=== PATIENT | male | born 1965 | race Caucasian/White ===

== ENCOUNTER 2025-02-11 15:42 | Emergency (ER) | payer OTHER, SELFPAY ==
[2025-02-11 15:45] VITALS: BP 149/88
[2025-02-11 19:02] VITALS: BMI 51.0
[2025-02-11] MEDS: NORCO 5/325 1 TABLET PO (20:21)
[2025-02-11] MEDS: DECADRON 10 MG PO (20:22)
--- NOTE | 2025-02-12 22:44 | ED.GENMED ---
History of Present Illness
General
Chief Complaint: Back Pain
Source: patient
Exam Limitations: none
Time Seen by Provider: 02/11/25 19:10
Nursing documentation reviewed up to this point in time: agreed with
History of Present Illness
History of Present Illness:
Patient to ED wtih complant of sciatic pain to LLE. He has chronic pain to low back and RLE. States this pain is new. Denies any history of new trauma. Denies any bowel or bladder symtpoms. No weakness in extremities, no saddle paresthesia.
Brought to ED by daughter for eval
Past History
Past History
ED Past Medical History: Other (chronic low back pain)
Review of Systems
Review of Systems
Allergies reviewed?: Yes
All Other Systems: ROS reviewed and negative except as documented in HPI and ROS
EENT: Reports no symptoms
Respiratory: Reports no symptoms
Cardiac: Reports no symptoms
ABD/GI: Reports no symptoms
: Reports no symptoms
Musculoskeletal: Reports back pain (bilateral lower back pain (chronic) radiating Irish (new))
Skin: Reports no symptoms
Neurological: Reports other (sciatic pain RLE)
Hematologic/Lymphatic: Reports no symptoms
Psychiatric: Reports no symptoms
Phy Exam
General Physical Exam
General Presentation: mild distress
General age: appears stated age
General Skin: warm and dry
General Habitus: obese
General Mental: alert
Musculoskeletal Exam
Musculoskeletal Exam: neuro vasc intact and other (Bilateral lower back pain (chronic) with radiation to LLE(new))
Skin Exam
Skin Exam: normal color, warm/dry and no rash
Psychiatric Exam
Psychiatric Exam: normal mood/affect
Course
Orders/Labs/Results
Orders:
Orders
02/11/25 19:25
Dexamethasone Pf [Decadron] 10 mg PO NOW STA
Hydrocodone 5/APAP 325 [Vanlue 5/325] 1 tablet PO NOW STA
Lumbar Spine Complete, 4 View [CR Lumbar Spine Comp Min 4 Vw*] Urgent
Comment:
Reason For Exam: pain
Vital Signs
Initial and Last Documented VS:
Initial Vital Signs
Temp Pulse Resp BP Pulse Ox
98 F 97 16 149/88 98
02/11/25 15:45 02/11/25 15:45 02/11/25 15:45 02/11/25 15:45 02/11/25 15:45
Last Documented Vital Signs
Temp Pulse Resp BP Pulse Ox
98 F 97 16 149/88 98
02/11/25 15:45 02/11/25 15:45 02/11/25 15:45 02/11/25 15:45 02/11/25 15:45
*Radiology
Radiology exam reviewed: radiology read reviewed
*Pulse Oximetry
Patient hypoxic: no
*Critical Care Note
Total Time (30-74mins, 75-104mins- exclusive of procedures): Not Applicable
Update Note
Update Note:
Patient to ED with complaint of sciatic pain to LLE. He has a chronic history of bilateral lower back pain and history of RLE sciatica. Now with LLE radiation. Neurovasc. intact. No weakness in extremities, no bowel or bladder symptoms, no saddle
paresthesia. No concern for cauda equina. Given dose of decadron in ED. WIll discharge with short course of pain medication and he will follow up [facility] this Pain management provider in the AM. He was given instructions on s/s to return to ED and
he is agreeable to plan.
ED Attending Note
-
Portions of this chart may have been created with voice recognition software.� Occasional wrong word or��sound alike� substitutions may have occurred due to the inherent limitations of voice recognition software.
Discharge Plan
Departure
Patient Disposition: Home (Routine Discharge)
Date of Disposition: 02/11/25
Time of Disposition: 20:28
Patient with high blood pressure during this ER visit?: No
Condition: Good
Covid-19: Not Applicable
Discharge Problem:
Low back pain, Sciatic pain
Instructions: Low Back Pain (DC), Sciatica (DC)
Prescriptions:
New
hydrocodone-acetaminophen 5-325 mg tablet
1 tab PO Q4H PRN (Reason: Pain) Qty: 10 0RF
Referrals:
Silviano Garcia DO [Non-Admitting Privileges] - Call in 1-3 days for appt
Davonte Singh MD [Family Provider] -
Interventions
Interventions:
*Risk Screen - Suicide Last Done: 02/11/25 15:45
*General Assessment Last Done: 02/11/25 19:03
*Neglect/Abuse Screening Last Done: 02/11/25 15:45
*ED- Fall Risk Assessment Last Done: 02/11/25 15:45
*ED COVID-19 Vaccine History Last Done: 02/11/25 19:03
*Nursing Disposition Last Done: 02/11/25 20:43
ED-Musculoskeletal Assessment Last Done: 02/11/25 19:03
Discharge Date and Time
Discharge Date/Time: 02/11/25 20:48
Print Language: NEPALESE
Musculoskeletal Injury Exam
Musculoskeletal Injury Exam
Bilateral Lower Back:
Pain with Movement?: Moderate
Tender to palpation?: Moderate
Soft tissue swelling?: None
External deformity and angulation?: None
Joint effusion?: None
Contusion?: None
Hematoma-local bleeding into tissue?: None
Crepitus with movement?: No
Joint instability?: No
Malalignment/deformity?: No
Range of motion: Limited
Distal skin color and temperature: normal-warm & good color
Capillary Refill: normal
Normal distal neurovascular exam?: Yes
== END 2025-02-11 20:48 | disposition home or self-care (01) ==
LOC: EMR 15:42
PROVIDERS: EMERGENCY PHYSICIAN Student in an Organized Health Care Education/Training Program; FAMILY PHYSICIAN Family Medicine
DX: M54.42 Lumbago with sciatica, left side (principal)
CPT/HCPCS: 99283; 72110; 96374; 96375